=== PATIENT | female | born 1975 | race African-American/Black ===

== ENCOUNTER 2018-07-20 06:29 | Day surgery (SDC) | payer MEDICAID ==
--- NOTE | 2018-07-19 09:27 | PREOPHP ---
DATE OF ADMISSION: 07/20/2018 The patient is scheduled for outpatient surgery on 07/20/2018. HISTORY OF PRESENT ILLNESS: The patient is a 43-year-old -[place] female, in overall good he alth, who developed a spontaneous episode of bloody left nipple discharge in May and since then, co ntinues to have bloody nipple discharge, but only evoked with stimulation of the breast. Mammogram a nd ultrasound performed 06/13/2018 were completely normal and studies in December 2017 revealed only 2 small 4 mm cyst in the left breast. The patient underwent ductogram on 06/25/2018 revealing a left retroareolar intraductal masses located at anterior depth within 1 cm deep in the cannulated duct wit h a cut off at 9 mm depth and a 4 x 2 mm mass in the anterior portion of the cannulated duct. The pa tient is scheduled to undergo excision of left nipple intraductal mass. MEDICATIONS: None. ALLERGIES: None. PAST SURGICAL HISTORY: Left breast biopsy in 1997. REVIEW OF SYSTEMS: 3, para 3. She is having regular menstrual periods. PHYSICAL EXAMINATION: GENERAL: The patient is 6 feet, 197 pounds. Normal vital signs. HEENT: Within normal limits. LUNGS: Clear. HEART: Regular rhythm. BREAST: The breasts are large and ptotic. There were no palpable masses in either breast. No skin or nipple changes. No axillary or supraclavicular lymphadenopathy. Blood appears with stimulation o f the nipple at the duct at 8 o'clock of the left nipple. ABDOMEN: Soft. Pelvic and rectal colon per primary care. EXTREMITIES: Without edema. NEUROLOGIC: Physiologic. IMPRESSION: Left breast intraductal mass of the nipple. PLAN: Excision of intraductal mass, left nipple. I had a full discussion with the patient regarding her condition, the nature of the surgery, indications, alternatives, options, the risks including bl eeding, infection, need for additional surgery or treatments, based on final pathology, scarring or d istortion of the nipple or breast or other abnormality of the nipple or areola, etc. All questions h ave been answered. She understands and agrees to proceed. Dictated By: NAYLA GALEANO/EDITH Conf#: [id number] DID#: [id number] CC: NAYLA ESTEVES MD;*End*
[2018-07-20] VITALS (14 sets, daily range): BP systolic 102–133; BP diastolic 64–80; PULSE 70–84; RESP 14–35
[~2018-07-20] VITALS: Ht 182.9 cm; Wt 88.0 kg
[2018-07-20] MEDS ORDERED: CEFAZOLIN 1 GM/50 ML (PMX) 50 ML IVPB ONE (07:00)
[2018-07-20] MEDS ORDERED: SOD CHLORIDE 0.9% 1,000 ML IV SCH (07:00)
--- NOTE | 2018-07-20 07:38 | PREAC ---
Date/Time of Note Date/Time of Note DATE: 07/20/18 TIME: 07:37 Anesthesia Eval and Record Evaluation Time Pre-Procedure Interview DATE: 07/20/18 TIME: 07:37 Age 43 Sex female NPO: 8 hrs Preoperative diagnosis Left nipple intraductal mass Planned procedure Excision of mass Past Medical History Past Medical History: None Surgery & Anesthesia Issues No known issue Meds Anticoagulation: No Beta Marguerite within 24 hr: No Reason Beta Marguerite not given: Pt. not on B-Marguerite No Active Prescriptions or Reported Meds Current Medications Sodium Chloride 1,000 ml @ 75 mls/hr [id number] IV ; Start 07/20/18 at 07:00; Stop 07/20/18 at 20:00 Meds reviewed: Yes Allergies Coded Allergies: No Known Drug Allergy (Verified Allergy, Unknown, 07/20/18) Allergies Reviewed: Yes Labs/Studies Labs Reviewed: Reviewed by anesthesiologist test: Negative Pre-procedure Exam Last vitals Vital Signs Date Temp Pulse Resp B/P (MAP) Pulse Ox O2 O2 Flow FiO2 Time Delivery Rate 07/20/18 98.1 84 16 133/80 100 Room Air 07:17 (97) Airway: Adequate mouth opening Mallampati: Mallampati I Teeth: Normal Lung: Normal Heart: Normal ASA Physical Status ASA physical status: 1 Emergency: None Planned Anesthetic General/MAC: LMA Planned Pain Management Parenteral pain med Pre-operative Attestations Prior to commencing anesthesia and surgery, the patient was re-evaluated, there was verification of: *The patient's identity *The results of appropriate recent lab work and preoperative vital signs *The above evaluation not changing prior to induction *Anesthetic plan, risk benefits, alternative and complications discussed with patient/family; questions answered; patient/family understands, accepts and wishes to proceed. MEL ROMANO MD July 20, 2018 07:38
--- NOTE | 2018-07-20 07:42 | HPN ---
Date/Time of Note Date/Time of Note DATE: 07/20/18 TIME: 07:42 Interval H&P Admission Note Pt. seen H&P reviewed: No system changes NAYLA ESTEVES July 20, 2018 07:42
[2018-07-20] MEDS ORDERED: CEFAZOLIN 1 GM INJ ONE ×2 (07:48→07:53)
[2018-07-20] MEDS ORDERED: PROPOFOL 20 ML ONE (07:48)
[2018-07-20] MEDS ORDERED: MEPERIDINE 100 MG INJ ONE (07:48)
[2018-07-20] MEDS ORDERED: LIDOCAINE 2% (SDV) 5 ML INJ ONE (07:48)
[2018-07-20] MEDS ORDERED: BUPIVACAINE 0.5%/EPI (SDV) 30 ML INJ ONE (07:49)
[2018-07-20] MEDS ORDERED: BUPIVACAINE 0.5% (SDV) 30 ML INJ ONE (07:57)
[2018-07-20] MEDS ORDERED: DIPHENHYDRAMINE 50 MG INJ IV PRN (08:00)
[2018-07-20] MEDS ORDERED: OXYCODONE/ACETAMINOPHEN (5/325) TAB PO PRN ×2 (08:00)
[2018-07-20] MEDS ORDERED: MIDAZOLAM 1 MG/ML 2 ML INJ IV PRN (08:00)
[2018-07-20] MEDS ORDERED: FENTAnyl 50 MCG/ML VIAL IV PRN ×3 (08:00)
[2018-07-20] MEDS ORDERED: HYDROmorphONE 1 MG/5 ML IV SYRINGE IV PRN ×3 (08:00)
[2018-07-20] MEDS ORDERED: ONDANSETRON 4 MG INJ IV PRN (08:00)
[2018-07-20] MEDS ORDERED: METOCLOPRAMIDE 10 MG INJ IV PRN (08:00)
[2018-07-20] MEDS ORDERED: MEPERIDINE 25 MG INJ IV PRN (08:00)
[2018-07-20] MEDS ORDERED: METOCLOPRAMIDE 10 MG INJ ONE (08:01)
[2018-07-20] MEDS ORDERED: ONDANSETRON 4 MG INJ ONE (08:01)
--- NOTE | 2018-07-20 08:50 | SIPON ---
Date/Time of Note Date/Time of Note DATE: 07/20/18 TIME: 08:46 Operative Report Preoperative Diagnosis left nipple duct mass Postoperative Diagnosis same Operation/Procedure Performed excision left nipple duct mass Surgeon see signature line personal injury legal assistant none Anesthesia: general Estimated blood loss: minimal Transfusion Required none Specimen left nipple duct Grafts/Implants none Complications none NAYLA ESTEVES July 20, 2018 08:50
--- NOTE | 2018-07-20 09:08 | OPR ---
DATE OF OPERATION: 07/20/2018 SURGEON: Nayla Allen MD MATERIALS MANAGEMENT MANAGER: None. ANESTHESIOLOGIST: Dr. Gerardo. ANESTHESIA: General. PREOPERATIVE DIAGNOSIS: Left nipple duct mass. POSTOPERATIVE DIAGNOSIS: Left nipple duct mass. OPERATION PERFORMED: Excision of left nipple duct mass. INDICATIONS: The patient has presented with evoked bloody nipple discharge from a nipple duct at 8 o 'clock. Ductogram revealed 2 superficial very small masses. DESCRIPTION OF PROCEDURE: The patient was taken to the operating room and under general anesthesia, with sequential compression device stockings in place, she was prepped and draped in the usual fashio n. Some of the bloody discharge was evoked by massaging the nipple and the appropriate duct cannulat ed with a lacrimal duct probe. A circumareolar incision was made in the medial aspect and the nipple areola elevated. The probe could readily be palpated within the duct and this was grasped with Jerardo s clamps and excised using cautery for hemostasis, excising it flush with the nipple. The specimen w as given for pathology. The field was irrigated and hemostasis secured with cautery. The incision w as closed with interrupted 3-0 Vicryl, deep dermal subcutaneous sutures followed by continuous 4-0 Mo nocryl subcuticular suture. Mastisol and 1/2-inch Steri-Strips were applied, followed by dry sterile dressing. Final sponge and needle counts were correct. The patient tolerated the procedure well an d left the operating room in good condition. Dictated By: NAYLA GALEANO/EDITH Conf#: [id number] DID#: [id number]
--- NOTE | 2018-07-20 09:23 | PAC ---
Date/Time of Note Date/Time of Note DATE: 07/20/18 TIME: 09:22 Post-Anesthesia Notes Post-Anesthesia Note Last documented vital signs Vital Signs Date Temp Pulse Resp B/P (MAP) Pulse Ox O2 O2 Flow FiO2 Time Delivery Rate 07/20/18 76 35 106/67 100 09:10 (80) 07/20/18 8.0 09:05 07/20/18 Mask 09:00 07/20/18 98.6 08:50 Activity: WNL Respiratory function: WNL Cardiovascular function: WNL Mental status: Baseline Pain reasonably controlled: Yes Hydration appropriate: Yes Nausea/Vomiting absent: Yes Comments BT: 98.5 MEL ROMANO MD July 20, 2018 09:23
== END 2018-07-20 11:20 | disposition home or self-care (01) ==
LOC: SDS 06:29
PROVIDERS: ATTEND Surgery
DX: D24.2 Benign neoplasm of left breast (principal); N64.52 Nipple discharge
CPT/HCPCS: 19120; J0690; J2175; J2405; J2765; J3010; Z7610